=== PATIENT | female | born 1985 ===

== ENCOUNTER 2020-03-18 00:57 | Outpatient (CLI) | payer SELFPAY ==
[2020-03-18 17:10] LABS: SARS-CoV-2 RNA PCR Negative
== END 2020-03-18 00:58 | disposition home or self-care (01) ==
LOC: ANHCOVIDDT 00:57
PROVIDERS: Visit Provider Surgery Plastic and Reconstructive Surgery
DX: Z01.812 Encounter for preprocedural laboratory examination (principal); Z20.828 Contact with and (suspected) exposure to other viral communicable diseases
CPT/HCPCS: 87635; C9803; U0003

== ENCOUNTER 2020-03-21 00:52 | Day surgery (SDC) | payer OTHER, SELFPAY ==
[2020-03-11 15:34] VITALS: BMI 21.8
--- NOTE | 2020-03-19 12:24 | WPDANESEPPF ---
Anes - Initial Pre Proc Eval Procedure: Operation Date: 03/21/20 08:45 Proposed Procedures p Bilateral Augmentation Mammoplasty - Abhijeet Lopez MD Date/Time: 03/19/20 12:24 Surgeon: Abhijeet Lopez MD Pre Op Diagnosis: Micromastia Patient Data Age: 34 Gender: F Height: 1.75 m Weight: 67.13 kg Allergies Allergy/AdvReac Type Severity Reaction Status Date / Time codeine Allergy Severe VIOLENT Verified 03/11/20 15:30 VOMITING AND HALLUCINATIONS Home Medications Medication Instructions Recorded Confirmed Type carisoprodol 350 mg tablet 350 mg PO TID PRN #21 tablet 03/06/20 03/11/20 Rx docusate sodium 100 mg capsule 100 mg PO DAILY #14 cap 03/06/20 03/11/20 Rx ondansetron HCl 4 mg tablet 4 mg PO Q8H #24 tablet 03/06/20 03/11/20 Rx oxycodone-acetaminophen 5 mg-325 1 tablet PO Q6H PRN #15 tablet 03/06/20 03/11/20 Rx mg tablet spironolactone 100 mg PO DAILY 03/11/20 03/11/20 History Patient hx anesthesia problems: post op nausea/vomiting Family hx anesthesia problems: none PMFSH Surgical History Surgical History History of History of tubal ligation Social History Social History Smoking status: Never smoker Alcohol intake: never Drinks per week: 1 Substance use: never Living arrangements: with family Spiritual care concerns: No Anes - Eval Final PreProcedure Day of Procedure 03/19/20 12:24 Patient weight: normal Heart: regular rate and rhythm Lungs: clear to auscultation and normal air movement Airway: Mallampati scale class 1 Neurological: alert and oriented Last oral intake: >/= 8 hours ASA classification: I Emergent: no Anesthetic plan: proceed Anesthesia type and monitoring: general LMA and standard monitoring Informed Consent: The patient's anesthetic plan and its attendant risks and benefits were discussed with the patient/family/POA. Questions were solicited and answers provided to the satisfaction of the patient/family/POA.
[2020-03-21 06:45] VITALS: BP 109/71; PULSE 81; RESP 16; TEMP 36.3; O2SAT 100
--- NOTE | 2020-03-21 07:09 | WPDHPUPDATE1 ---
History and Physical Update Update Date/Time: 03/21/20 07:09 History and Physical has been reviewed, including an updated exam of the patient. There are NO changes in the patient's condition. Risks, benefits, and alternatives have been discussed and questions answered. Patient agrees to proceed with procedure.
[2020-03-21 07:12] VITALS: BMI 21.4
--- NOTE | 2020-03-21 07:13 | PM.PROC ---
Procedure Note - Detailed Date of procedure: 03/21/20 Pre-op diagnosis: Micromastia Post-op diagnosis: same Procedure performed: Bilateral augmentation mammoplasty Description of procedure: She is here today for bilateral breast augmentation. Previously and again today the risks, benefits, alternatives were discussed in extensive detail. I wanted her to be very realistic about the risks involved as well as expectations. She understands her breasts are low and she has a degree of glandular ptosis and will always have this. She is at risk for waterfall deformity and needing a second-stage mastopexy at her expense. We discussed aftercare and what to monitor for. Made sure answered all of her questions to her satisfaction today and consent was obtained. Marked in the preoperative holding area with their verification. The patient was taken to the operating room placed supine on the operating table. Anesthesia was provided by anesthesiology. A surgical time-out was taken. We cleansed the skin and 1% lidocaine and 0.25% Marcaine with epinephrine was used anesthetize as a field block. She was prepped and draped in a standard sterile fashion. Tegaderm nipple Waldrop were placed. A 15 blade used to make an incision along the inframammary fold. Dissection was continued at 45 degree angle until the chest wall as identified. I elevated bilaterally and a dual plane 3 fashion. I then incised the pectoralis major along its inferior border and completely released the inferior border leaving the medial border intact. I created a subpectoral pocket in the appropriate dimensions based on our preoperative planning for the implant. I then copiously irrigated with saline solution and verified a strict hemostasis. Next the use a triple antibiotic and Betadine containing solution to irrigate the pocket. I washed my gloves with the triple antibiotic and Betadine solution. We washed the implant immediately upon opening it with this solution and only opened it when we needed it. I used implant funnel and no-touch technique. The implant was introduced into the pocket using the funnel. Having verified positioning of the implant this was closed using 2-0 Vicryl followed by 3-0 Monocryl in a running subcuticular 4-0 Monocryl followed by tissue glue. Fluffs, Rigoberto wrap, and surgical bra were placed. Patient was awoke and taken to PACU without difficulty. All instrument sponge counts were correct at the end of the case. Anesthesia: GLMA Surgeon: Abhijeet Lopez MD Estimated blood loss (mL): 20 Drains: No Packing: No Pathology: none sent Complications: No immediate complications Condition: stable Disposition: PACU Findings: Bilateral dual plane 3 augmentation mammaplasty Bilateral Natrelle Inspira SoftTouch Implants 415cc Right: REF [id number] Left: REF [id number]
[2020-03-21] MEDS: SCOPOLAMINE 1.5 MG PATCH TRANSDERM (07:50)
[2020-03-21] MEDS: LACTATED RINGERS 1,000 ML 30 ML IV CONT ×2 (07:52→09:42)
[2020-03-21 08:20] LABS: Anion Gap 8 mmol/L (8-16); Blood Urea Nitrogen 15 mg/dL (7-17); Calcium 9.1 mg/dL (8.4-10.2); Carbon Dioxide 25 mmol/L (22-30); Chloride 105 mmol/L (98-107); Estimated CRCL calculation 101 ml/min; Estimated Glomerular Filt Rate > 60; Glucose 87 mg/dL (65-105); Potassium 4.8 mmol/L (3.4-5.0); Sodium 138 mmol/L (137-145)
[2020-03-21] MEDS: ceFAZolin 2 GM/D5W 50 ML 2 GM/50 ML BAG IVPB (08:39)
[2020-03-21] MEDS: LIDO 1%/EPINEPHRINE 1:100,000 50 ML VIAL 40 ML INFILTRATE (09:09)
[2020-03-21 09:46] VITALS: BP 125/69; PULSE 108; RESP 12; O2SAT 100
[2020-03-21 10:15] VITALS: BP 107/61; PULSE 67; RESP 12; O2SAT 100
[2020-03-21] MEDS: fentaNYL CITRATE INJ (*CRX) 100 MCG/2 ML VIAL 25 MCG IV PUSH (10:57)
[2020-03-21 11:00] VITALS: BP 104/64; PULSE 85; RESP 15; O2SAT 98
[2020-03-21] MEDS: ONDANSETRON INJ 4 MG/2 ML VIAL IV PUSH (11:16)
[2020-03-21 11:30] VITALS: BP 109/72; PULSE 70; RESP 15
[2020-03-21 12:00] VITALS: BP 107/74; PULSE 88; RESP 15
== END 2020-03-21 12:05 | disposition home or self-care (01) ==
PROVIDERS: Anesthesiology; Visit Provider Surgery Plastic and Reconstructive Surgery
PROC: (CPT 19325; principal; 2020-03-21 08:45)
DX: Z41.1 Encounter for cosmetic surgery (principal); N64.82 Hypoplasia of breast
CPT/HCPCS: 19325; 36415; 80048; A9270; J0690; J1100; J1200; J1580; J2250; J2405; J2704; J3010; J7120